=== PATIENT | female | born 1930 | race Caucasian/White ===

== ENCOUNTER 2018-04-19 13:44 | Observation (INO) ==
[2018-04-19 14:47] LABS: Bilirubin,Urine Negative (Negative); Blood,Urine Negative (Negative); Clarity,Urine Clear (Clear); Color,Urine Yellow (Yellow); Glucose,Urine (UA) 250 mg/dL (Normal); Ketones,Urine Negative (Negative); Leukocyte Esterase,Urine Small (Negative); Nitrite,Urine Negative (Negative); Protein,Urine Negative (Neg-Trace); Specific Gravity,Urine 1.014 (1.010-1.025); Urobilinogen,Urine Normal (Normal)
[2018-04-19 14:49] LABS: Bacteria,Urine Many per hpf (None-Few); Hyaline Casts,Urine None Seen per lpf (None-Few); Squamous Epithelial Cell,Urine Many per lpf (None-Few)
[2018-04-19 15:03] LABS: Basophils # 0.1 K/mcL (0.0-0.2); Basophils % 0.8 %; Eosinophils # 0.2 K/mcL (0.0-0.6); Eosinophils % 1.8 %; Hematocrit 43.3 % (35.3-44.9); Hemoglobin 13.9 g/dL (11.5-15.4); Immature Granulocytes % 0.8 % (0-4); Lymphocytes # 0.9 K/mcL (0.6-4.6); Lymphocytes % 11.3 %; Mean Corpuscular HGB Conc 32.1 g/dL (31.6-35.5); Mean Corpuscular Hemoglobin 31.1 pg (28.0-33.3); Mean Corpuscular Volume 96.9 fL (83.0-100.0); Mean Platelet Volume 9.4 fL (9.4-12.4); Monocytes # 0.7 K/mcL (0.0-1.3); Monocytes % 8.2 %; Neutrophils # 6.4 K/mcL (1.6-8.9); Platelet Count 168 K/mcL (140-400); Red Blood Count 4.47 M/mcL (3.82-4.97); Red Cell Distribution Width 14.2 % (11.5-14.5); Segmented Neutrophils % 77.1 %
[2018-04-19 15:18] LABS: Troponin I < 0.03 ng/mL (< 0.04)
[2018-04-19 15:22] LABS: Alanine Aminotransferase 15 Units/L (7-52); Albumin 4.2 g/dL (3.5-5.7); Albumin/Globulin Ratio 1.4 (1.1-2.2); Alkaline Phosphatase 62 Units/L (34-104); Aspartate Amino Transferase 16 Units/L (13-39); BUN/Creatinine Ratio 20 (6-26); Bilirubin,Total 0.5 mg/dL (0.3-1.0); Blood Urea Nitrogen 20 mg/dL (8-23); Calcium 10.1 mg/dL (8.6-10.3); Carbon Dioxide 26 mEq/L (23-29); Chloride 99 mEq/L (98-107); Glucose 198 mg/dL (70-105); Osmolality,Calculated 290 (280-300); Potassium 3.9 mEq/L (3.5-5.1); Sodium 136 mEq/L (136-145); Total Protein 7.2 g/dL (6.4-8.9); eGFR For African Americans > 60 (> 60); eGFR For Non-African Americans 51 (> 60)
--- NOTE | 2018-04-19 17:19 | Emergency Department Note ---
Disposition Clinical Impression: Hypoxia Disposition: Admitted As Inpatient Condition: Good Referrals: Rashawn Underwood MD [Primary Care Provider] - Forms: ED Satisfaction Letter Time of Disposition: 20:53 General Adult HPI - General Chief complaint: ED Shortness of Breath/Dyspnea Stated complaint: possible pneumonia Time Seen by Provider: 04/19/18 16:56 Source: patient Limitations: no limitations Nursing Notes Reviewed: Yes Vital Signs Reviewed: Yes - History of Present Illness HPI Narrative: Mrs. Flowers, 88-year-old female who lives at home alone, presents from home with her daughters bedside. She called her primary care provider whose nurse recommended she present to the emergency department. She has a 3 day history of congestion, clear rhinorrhea, cough. She is concerned about pneumonia as, 12 years ago, she has similar symptoms with progressed into pneumonia she is trying to catch it early. She has no history of COPD. She herself has never smoked however she has been around smoking. She is not using the oxygen at home. She immediately became difficulty. She does have mild shortness of breath only after an episode of coughing. No fever. No chest pain, palpitations, diaphoresis. She has rib pain with cough. ROS: Positive: As above Negative: Fever, chills, nausea, vomiting, chest pain, palpitations, diaphoresis , unusual back pain, weakness, numbness, tingling, fall, sputum production. Pain Scale: 5 - Related Data Home Medications Medication Instructions Recorded Confirmed Cholecalciferol (Vitamin D3) 1,000 unit PO DAILY 02/22/16 04/19/18 [Vitamin D3] Diltiazem HCl [Diltiazem 24Hr Cd] 180 mg PO DAILY 02/22/16 04/19/18 Enalapril Maleate [Vasotec] 5 mg PO DAILY 02/22/16 04/19/18 Ferrous Sulfate [Iron] 325 mg PO DAILY 02/22/16 04/19/18 Linagliptin [Tradjenta] 5 mg PO DAILY 02/22/16 04/19/18 Ezetimibe [Ezetimibe] 10 mg PO DAILY 04/19/18 04/19/18 Furosemide [Lasix] 40 mg PO DAILY 04/19/18 04/19/18 Potassium Chloride [K-Tab ER] 20 meq PO DAILY 04/19/18 04/19/18 Allergies Allergy/AdvReac Type Severity Reaction Status Date / Time Oxaprozin [From Daypro] Allergy Hives Verified 04/19/18 20:52 pioglitazone [From Actos] AdvReac See Verified 04/19/18 20:52 Comments All systems ED: reviewed and negative except as stated. Review of Systems: As Per HPI Past Medical History - Past Medical History Medical history: Reports: arthritis, diabetes, fibromyalgia, hyperlipidemia, hypertension, osteoporosis, other Psychiatric history: Reports: no psych history - Social History Smoking Status: Never smoker Smokeless Tobacco Status: No Alcohol use: Reports: none Drug use: Reports: none Physical Exam Vital Signs Reviewed-patient slightly tachycardic on intake vitals, heart rate in the mid 90's on bedside monitor. General: Patient is alert, oriented, and in no acute distress. She is oxygenating well on room air on bedside pulse oximetry. Head: atraumatic, normocephalic Eye: normal appearance, no scleral icterus, no conjunctival injection ENT: mucous membranes moist, normal external ear exam Neck: normal inspection, trachea midline, full ROM Chest: normal inspection, symmetric chest rise Respiratory: Thoracic kyphosis. Good respiratory effort however limited secondary to kyphosis. Bilateral breath sounds are clear without wheezing, crackles, or rhonchi. Cardiovascular: Regular rate and rhythm. No clicks, rubs, gallops, or murmors. Normal heart sounds. Abdomen: Bowel sounds present normoactive x-4 quadrants. Abdomen is soft, nondistended, and nontender. No guarding or rebound. No organomegaly noted. Musculoskeletal: Spontaneously moving all extremities. Skin: warm, dry, intact. Neuro: Alert and oriented x4. Sensation light touch intact. Psych: Patient's affect is appropriate for situation. - General Limitations: no limitations General appearance: alert Course Course Narrative: Chest x-ray is unremarkable per radiology read as well as my evaluation. Patient has clear lung sounds however her respiratory inspiration limited secondary to thoracic kyphosis. Serum chemistries unremarkable. Serum hematology is unremarkable. Urinalysis shows epithelial contamination. Patient has no urinary symptoms. Culture pending; will await antibiotic management until culture has resulted. Patient age related with her cane on room air. She became hypoxic to 85% and tachycardic to 135. Though she is not wheezing and has no history of COPD, will provide nebs as wheezing may not be present secondary to limited inspiration. We will also provide IV steroids and draw a d-dimer. D-dimer 960; above age adjusted threshold of 890. Discussed this with the patient and her three daughters bedside; they agree to CTA chest. CTA negative for PE or pneumonia. Patient ambulated again on room air and her pulse ox dropped to 82% and she again became tachycardic. I discussed the above with the patient and her daughters bedside. Throughout the patient's stay, we discussed Options including admission. Given that the patient has unexplained hypoxia and no oxygen at home, I recommended admission. Patient's family and patient eventually agreed. I discussed the patient with the admitting hospitalist who agrees to accept the patient for continued evaluation and management EKG dated 19 April 2018 at 15:04 interpreted as sinus tachycardia with rate of 109. ID [id number], QRS 100, QTC 362. Left axis. Nonspecific ST-T changes. Compared to previous EKG dated 05/07/16 showing no acute ischemic changes. Chest X-Ray 04/19/18 14:23 IMPRESSION: 1. No acute cardiopulmonary disease. 2. Large hiatal hernia. D/ / 04/19/2018 14:55:48 Ami Awan MD / [facility] Interpreting Provider: Ami Awan MD Chest CTA 04/19/18 18:47 IMPRESSION: 1. No evidence of pulmonary embolism. 2. Mild mediastinal adenopathy, large hiatal hernia with paraesophageal component, and diffuse wall thickening in the distal esophagus. 3. Central pulmonary vasculature is prominent with ground-glass perihilar changes, likely mild vascular congestion. No gross effusions are noted. D/ : / 04/19/2018 20:12:25 Breana Temple MD / [facility] Interpreting Provider: Breana Temple MD Vital Signs Temperature 99.4 F 04/19/18 14:15 Pulse Rate 109 04/19/18 14:15 Respiratory Rate 24 04/19/18 14:15 Blood Pressure 133/81 04/19/18 14:15 O2 Sat by Pulse Oximetry 94 04/19/18 14:15 Temperature 99.4 F 04/19/18 14:15 Pulse Rate 103 04/19/18 21:00 Respiratory Rate 18 04/19/18 18:31 Blood Pressure 141/84 04/19/18 21:00 O2 Sat by Pulse Oximetry 92 04/19/18 21:00 Oxygen Delivery Oxygen Delivery Room Air Medical Decision Making - Lab Data Result diagrams: 04/19/18 14:42 04/19/18 14:42 Lab Results 04/19/18 04/19/18 04/19/18 Range/Units 14:15 14:42 14:42 WBC 8.3 (4.3-11.1) K/mcL RBC 4.47 (3.82-4.97) M/mcL Hgb 13.9 (11.5-15.4) g/dL Hct 43.3 (35.3-44.9) % MCV 96.9 (83.0-100.0) fL MCH 31.1 (28.0-33.3) pg MCHC 32.1 (31.6-35.5) g/dL RDW 14.2 (11.5-14.5) % Plt Count 168 (140-400) K/mcL MPV 9.4 (9.4-12.4) fL Immature Gran % 0.8 (0-4) % Seg Neutrophils % 77.1 % Lymphocytes % 11.3 % Monocytes % 8.2 % Eosinophils % 1.8 % Basophils % 0.8 % Neutrophils # 6.4 (1.6-8.9) K/mcL Lymphocytes # 0.9 (0.6-4.6) K/mcL Monocytes # 0.7 (0.0-1.3) K/mcL Eosinophils # 0.2 (0.0-0.6) K/mcL Basophils # 0.1 (0.0-0.2) K/mcL D-Dimer (0-500) ng/mLFEU Sodium 136 (136-145) mEq/L Potassium 3.9 (3.5-5.1) mEq/L Chloride 99 (98-107) mEq/L Carbon Dioxide 26 (23-29) mEq/L BUN 20 (8-23) mg/dL Creatinine 1.02 (0.60-1.20) mg/dL Est GFR ( Amer) > 60 (> 60) Est GFR (Non-Af Amer) 51 L (> 60) BUN/Creatinine Ratio 20 (6-26) Glucose 198 H (70-105) mg/dL POC Glucose (70-99) mg/dL Calculated Osmolality 290 (280-300) Calcium 10.1 (8.6-10.3) mg/dL Total Bilirubin 0.5 (0.3-1.0) mg/dL AST 16 (13-39) Units/L ALT 15 (7-52) Units/L Alkaline Phosphatase 62 (34-104) Units/L Troponin I < 0.03 (< 0.04) ng/mL Serum Total Protein 7.2 (6.4-8.9) g/dL Albumin 4.2 (3.5-5.7) g/dL Globulin 3.0 (2.4-3.5) g/dL Albumin/Globulin Ratio 1.4 (1.1-2.2) Urine Color Yellow (Yellow) Urine Clarity Clear (Clear) Urine pH 6.0 (5.0-8.0) pH Units Ur Specific [place] 1.014 (1.010-1.025) Urine Protein Negative (Neg-Trace) mg/dL Urine Glucose (UA) 250 H (Normal) mg/dL Urine Ketones Negative (Negative) mg/dL Urine Blood Negative (Negative) Urine Nitrite Negative (Negative) Urine Bilirubin Negative (Negative) Urine Urobilinogen Normal (Normal) mg/dL Ur Leukocyte Esterase Small H (Negative) Urine Microscopic RBC 3-5 H (0-3) per hpf Urine Microscopic WBC 5-15 H (0-3) per hpf Ur Squamous Epith Cells Many H (None-Few) per lpf Urine Bacteria Many H (None-Few) per hpf Hyaline Casts None Seen (None-Few) per lpf Ur Culture Indicated? NO. A (NO) 04/19/18 04/19/18 Range/Units 14:42 17:37 WBC (4.3-11.1) K/mcL RBC (3.82-4.97) M/mcL Hgb (11.5-15.4) g/dL Hct (35.3-44.9) % MCV (83.0-100.0) fL MCH (28.0-33.3) pg MCHC (31.6-35.5) g/dL RDW (11.5-14.5) % Plt Count (140-400) K/mcL MPV (9.4-12.4) fL Immature Gran % (0-4) % Seg Neutrophils % % Lymphocytes % % Monocytes % % Eosinophils % % Basophils % % Neutrophils # (1.6-8.9) K/mcL Lymphocytes # (0.6-4.6) K/mcL Monocytes # (0.0-1.3) K/mcL Eosinophils # (0.0-0.6) K/mcL Basophils # (0.0-0.2) K/mcL D-Dimer 968 H (0-500) ng/mLFEU Sodium (136-145) mEq/L Potassium (3.5-5.1) mEq/L Chloride (98-107) mEq/L Carbon Dioxide (23-29) mEq/L BUN (8-23) mg/dL Creatinine (0.60-1.20) mg/dL Est GFR ( Amer) (> 60) Est GFR (Non-Af Amer) (> 60) BUN/Creatinine Ratio (6-26) Glucose (70-105) mg/dL POC Glucose 156 H (70-99) mg/dL Calculated Osmolality (280-300) Calcium (8.6-10.3) mg/dL Total Bilirubin (0.3-1.0) mg/dL AST (13-39) Units/L ALT (7-52) Units/L Alkaline Phosphatase (34-104) Units/L Troponin I (< 0.04) ng/mL Serum Total Protein (6.4-8.9) g/dL Albumin (3.5-5.7) g/dL Globulin (2.4-3.5) g/dL Albumin/Globulin Ratio (1.1-2.2) Urine Color (Yellow) Urine Clarity (Clear) Urine pH (5.0-8.0) pH Units Ur Specific [place] (1.010-1.025) Urine Protein (Neg-Trace) mg/dL Urine Glucose (UA) (Normal) mg/dL Urine Ketones (Negative) mg/dL Urine Blood (Negative) Urine Nitrite (Negative) Urine Bilirubin (Negative) Urine Urobilinogen (Normal) mg/dL Ur Leukocyte Esterase (Negative) Urine Microscopic RBC (0-3) per hpf Urine Microscopic WBC (0-3) per hpf Ur Squamous Epith Cells (None-Few) per lpf Urine Bacteria (None-Few) per hpf Hyaline Casts (None-Few) per lpf Ur Culture Indicated? (NO) Attestation Statement - Attestation Attestation: I, Jerome Barnhart, examined this patient and my medical decision-making was reviewed with the AUDIO VIDEO REPAIRER/PA/Advanced Practice Nurse/Resident Physician. I agree with the documented findings, disposition and treatment plan as described except to the extent set forth below. 88-year-old female presents emergency Department with concerns of cough and possible pneumonia. Patient states she has a cough with nonproductive cough and nasal congestion over the past 2-3 days. Patient reports similar symptoms with previous pneumonia. Primary care provider Center to the emergency department for further evaluation. She denies a significant change in her shortness of breath. Chest x-ray did not show obvious infiltrate. Laboratory evaluation was largely within normal limits. Urinalysis showed possible urinary tract infection however patient is not having symptoms of UTI. Patient ambulated and became tachycardic to 135 and hypoxic to 85%. She states no history of COPD and she does not have significant amount of wheezing however the exam is limited by her kyphosis. Patient does not wear oxygen at home. D- dimer elevated above 900. CTA pending at this time.
[2018-04-19] MEDS ORDERED: Ipratropium/Albuterol Neb 3 ML IH ONE (17:21)
[2018-04-19] MEDS ORDERED: predniSONE 20 MG TABLET PO ONE (17:23)
[2018-04-19] MEDS ORDERED: 0.9 % Sodium Chloride 500 ML IVC ONE (17:37)
[2018-04-19] MEDS ORDERED: Isovue-370 500 ML INFUS..BTL IV ONE (18:47)
[2018-04-19] MEDS ORDERED: Acetaminophen 325 MG TABLET PO PRN (21:53)
[2018-04-19] MEDS ORDERED: Naloxone 0.4 MG/ML INJ IVP PRN (21:53)
[2018-04-19] MEDS ORDERED: Dextrose Gel 15 GM/37.5 ML TUBE PO PRN ×2 (21:58)
[2018-04-19] MEDS ORDERED: D5% in Water 1,000 ML IVC PRN (21:58)
[2018-04-19] MEDS ORDERED: *HR* Dextrose 50 % in Water (Syg) 50 ML SYRINGE IVP PRN (21:58)
--- NOTE | 2018-04-19 22:13 | Internal Med History&Physical ---
Date of Encounter: 04/19/18 Time of Encounter: 22:00 Internal Medicine - H&P: HPI Chief complaint: cough Admitted From: Home Plans for Post Hospital Care: Home History of present illness: Ms. Flowers is a 88 year old female with a pmh of HTN, HLP, DM2 and diastolic CHF who presented from home to the ED for 3 days of coughing and nasal congestion. Patient states that she on Wednesday began having a productive cough with clear sputum, nasal congestion of which she thought was getting better and today states that she got worse. She denies having fevers, weakness , dizziness, changes in vision, shortness of breath, chest pain or hemoptysis. Patient states that she has had pneumonia in the past and wanted to make sure that it does not progress to this which is why she came in today. Upon arrival in the ED, patient's respiratory rate was 24 and an O2 of 94% but did drop down to 85% when she became tachycardic at 135. Patient was given duo nebs, prednisone 60 mg by mouth, in the 500 mL bolus of normal saline. Patient' s EKG showed sinus tachycardia. D-dimer was elevated at 968 but CTA was negative for PE. Patient was admitted to the floor for acute bronchitis with hypoxia. While in the room patient was satting in the low 90s but when talking decreased to 88%. Past Med Surg Social Fam HX - Past Medical History Source: patient, old records reviewed Medical history: arthritis, CHF, diabetes, fibromyalgia, hyperlipidemia, hypertension, osteoporosis, other Additional medical history: OA Psychiatric history: no psych history - Past Surgical History Additional surgical history: uterus removed, breast biopsy non-cancerous - Social History Smoking Status: Never smoker Smokeless Tobacco Status: No Alcohol use: none Drug use: none - Family History Father Living Status: Hx Family Cardiac Disorders: Yes Mother Living Status: Hx Family Neurologic Disorders: Yes (cva) Internal Medicine - H&P: Meds Cholecalciferol (Vitamin D3) [Vitamin D3] 1,000 unit PO DAILY 02/22/16 [History] Diltiazem HCl [Diltiazem 24Hr Cd] 180 mg PO DAILY 02/22/16 [History] Enalapril Maleate [Vasotec] 5 mg PO DAILY 02/22/16 [History] Ferrous Sulfate [Iron] 325 mg PO DAILY 02/22/16 [History] Linagliptin [Tradjenta] 5 mg PO DAILY 02/22/16 [History] Ezetimibe [Ezetimibe] 10 mg PO DAILY 04/19/18 [History] Furosemide [Lasix] 40 mg PO DAILY 04/19/18 [History] Potassium Chloride [K-Tab ER] 20 meq PO DAILY 04/19/18 [History] 3 Allergy/AdvReac Type Severity Reaction Status Date / Time Oxaprozin [From Daypro] Allergy Hives Verified 04/19/18 20:52 pioglitazone [From Actos] AdvReac See Verified 04/19/18 20:52 Comments All Systems PM: A 10-system review of systems was performed and is negative for pertinent findings except as documented above in the HPI. Review of systems: See HPI - Constitutional Vitals: Temp Pulse Resp BP Pulse Ox 99.4 F 103 18 141/84 92 04/19/18 14:15 04/19/18 21:00 04/19/18 18:31 04/19/18 21:00 04/19/18 21:00 Exam: Constitutional: Alert, in no acute distress Head: Normocephalic, atraumatic Heart: Normal, regular rate and rhythm, no murmurs Lungs: Clear to auscultation with normal breathing, wheezing with coughing Abdomen: Soft, nondistended, nontender, bowel sounds present and normal, no guarding or rigidity. Extremities: No edema, No clubbing, radial pulse +2/4, capillary refill <2sec. Skin: Skin warm and dry, no lesions, no rashes, no jaundice Neurologic: Cranial nerves II through XII grossly intact, strength 5/5 in all extremities Psych: Cooperative with exam, good eye contact, cognitive function intact, speech clear, thought process logical, and goal directed Internal Med - H&P Results - Labs CBC & Chem 7: 04/19/18 14:42 04/19/18 14:42 Labs: Short CBC 04/19/18 Range/Units 14:42 WBC 8.3 (4.3-11.1) K/mcL Hgb 13.9 (11.5-15.4) g/dL Hct 43.3 (35.3-44.9) % Plt Count 168 (140-400) K/mcL Neutrophils # 6.4 (1.6-8.9) K/mcL BMP 04/19/18 14:42 Sodium 136 Potassium 3.9 Chloride 99 Carbon Dioxide 26 BUN 20 Creatinine 1.02 Glucose 198 H Calcium 10.1 Cardiac Enzymes 04/19/18 Range/Units 14:42 Troponin I < 0.03 (< 0.04) ng/mL Liver Function 04/19/18 Range/Units 14:42 Total Bilirubin 0.5 (0.3-1.0) mg/dL AST 16 (13-39) Units/L ALT 15 (7-52) Units/L Alkaline Phosphatase 62 (34-104) Units/L Albumin 4.2 (3.5-5.7) g/dL Urine 04/19/18 Range/Units 14:15 Urine Color Yellow (Yellow) Urine Clarity Clear (Clear) Urine pH 6.0 (5.0-8.0) pH Units Ur Specific [place] 1.014 (1.010-1.025) Urine Protein Negative (Neg-Trace) mg/dL Urine Glucose (UA) 250 H (Normal) mg/dL - Impressions ITS Impressions Chest X-Ray 04/19/18 14:23 IMPRESSION: 1. No acute cardiopulmonary disease. 2. Large hiatal hernia. D/ / 04/19/2018 14:55:48 Ami Awan MD / [email or web address] Interpreting Provider: Ami Awan MD Chest CTA 04/19/18 18:47 IMPRESSION: 1. No evidence of pulmonary embolism. 2. Mild mediastinal adenopathy, large hiatal hernia with paraesophageal component, and diffuse wall thickening in the distal esophagus. 3. Central pulmonary vasculature is prominent with ground-glass perihilar changes, likely mild vascular congestion. No gross effusions are noted. D/ / 04/19/2018 20:12:25 Breana Temple MD / [email or web address] Interpreting Provider: Breana Temple MD - Assessment and plan (1) Acute bronchitis Current Visit: Yes Status: Acute Assessment and plan: Three days of URI symptoms that were seemingly like they are improving and then worsened today. In the ED, patient was hypoxic down to 85% and tachycardic to 135. Due to worsening symptoms and hypoxia will begin antibiotics. BNP ordered to assure no component of congestive heart failure. Plan: - begin Azithromycin (day 1/5) - respiratory panel - continue ox support if needed - DuoNebs Q4H prn, Q6H renetta - Prednisone 50mg daily - Mucinex - BNP ordered Qualifiers: Bronchitis organism: unspecified organism Qualified Code(s): J20.9 - Acute bronchitis, unspecified (2) Diabetes Current Visit: No Status: Chronic Assessment and plan: Plan: - low sliding scale - Accu checks TIDAC and HS Qualifiers: Diabetes mellitus type: type 2 Diabetes mellitus complication status: without complication Qualified Code(s): E11.9 - Type 2 diabetes mellitus without complications (3) Hypertension, essential Current Visit: Yes Status: Acute Assessment and plan: Has been normotensive during this admission. Continue home meds. (4) DVT prophylaxis Current Visit: Yes Status: Acute Assessment and plan: Heparin SQ - Time Spent With Patient Total time spent is greater than 50% in coordination of care (as documented) at patient's floor/unit and/or counseling patient:
--- NOTE | 2018-04-19 22:14 | Event Note ---
Date of Encounter: 04/19/18 Time of Encounter: 22:13 Patient was seen and examined. I agree with the H&P as written by the Resident Physician. Briefly patient with history of hypertension, hyperlipidemia, diabetes, and anasarca failure who presents with 3 days of URI symptoms with a productive cough. Chest x-ray was clear. Hemoglobin stable in the ED. When this to the patient up they noted that her oxygenation would drop to 85% with ambulation. The ED did not feel couple sending the patient home. D dimers were elevated and a CTA was done which ruled out a PE. No infiltrates showed imaging. Patient has no signs of edema and volume overload. Other laboratory work was unremarkable. The patient was given prednisone in the ED. With admitting the patient for acute bronchitis. GEN: NAD CVS: RRR. S1, S2, No m/r/g RESP: CTAB ABD: Soft, NT, ND, +BS EXT: No edema. 2+ DP. No rashes NEURO: Nonfocal Admit to hospitalist Put the patient on oral prednisone and Zithromax Respiratory panel Nebs and Mucinex May need O2 study prior to discharge PFTs in the outpatient setting Insulin sliding scale Resume home meds DVT prophylaxis
--- NOTE | 2018-04-19 22:33 | Emergency Department Note ---
Disposition Clinical Impression: Hypoxia Disposition: Admitted As Inpatient Condition: Good General Adult HPI - General Chief complaint: ED Shortness of Breath/Dyspnea Stated complaint: possible pneumonia Time Seen by Provider: 04/19/18 16:56 Source: patient Limitations: no limitations Nursing Notes Reviewed: Yes Vital Signs Reviewed: Yes - History of Present Illness Pain Scale: 0 - Related Data Home Medications Medication Instructions Recorded Confirmed Cholecalciferol (Vitamin D3) 1,000 unit PO DAILY 02/22/16 04/19/18 [Vitamin D3] Diltiazem HCl [Diltiazem 24Hr Cd] 180 mg PO DAILY 02/22/16 04/19/18 Enalapril Maleate [Vasotec] 5 mg PO DAILY 02/22/16 04/19/18 Ferrous Sulfate [Iron] 325 mg PO DAILY 02/22/16 04/19/18 Linagliptin [Tradjenta] 5 mg PO DAILY 02/22/16 04/19/18 Ezetimibe [Ezetimibe] 10 mg PO DAILY 04/19/18 04/19/18 Furosemide [Lasix] 40 mg PO DAILY 04/19/18 04/19/18 Potassium Chloride [K-Tab ER] 20 meq PO DAILY 04/19/18 04/19/18 Allergies Allergy/AdvReac Type Severity Reaction Status Date / Time Oxaprozin [From Daypro] Allergy Hives Verified 04/19/18 20:52 pioglitazone [From Actos] AdvReac See Verified 04/19/18 20:52 Comments Past Medical History - Past Medical History Medical history: Reports: arthritis, CHF, diabetes, fibromyalgia, hyperlipidemia , hypertension, osteoporosis, other Psychiatric history: Reports: no psych history - Social History Smoking Status: Never smoker Smokeless Tobacco Status: No Alcohol use: Reports: none Drug use: Reports: none Physical Exam - General Limitations: no limitations General appearance: alert Course Vital Signs Temperature 99.4 F 04/19/18 14:15 Pulse Rate 109 04/19/18 14:15 Respiratory Rate 24 04/19/18 14:15 Blood Pressure 133/81 04/19/18 14:15 O2 Sat by Pulse Oximetry 94 04/19/18 14:15 Temperature 99.4 F 04/19/18 14:15 Pulse Rate 99 04/19/18 22:06 Respiratory Rate 18 04/19/18 18:31 Blood Pressure 117/70 04/19/18 22:06 O2 Sat by Pulse Oximetry 89 04/19/18 22:06 Oxygen Delivery Oxygen Delivery Room Air Medical Decision Making - Lab Data Result diagrams: 04/19/18 14:42 04/19/18 14:42 Lab Results 04/19/18 04/19/18 04/19/18 Range/Units 14:15 14:42 14:42 WBC 8.3 (4.3-11.1) K/mcL RBC 4.47 (3.82-4.97) M/mcL Hgb 13.9 (11.5-15.4) g/dL Hct 43.3 (35.3-44.9) % MCV 96.9 (83.0-100.0) fL MCH 31.1 (28.0-33.3) pg MCHC 32.1 (31.6-35.5) g/dL RDW 14.2 (11.5-14.5) % Plt Count 168 (140-400) K/mcL MPV 9.4 (9.4-12.4) fL Immature Gran % 0.8 (0-4) % Seg Neutrophils % 77.1 % Lymphocytes % 11.3 % Monocytes % 8.2 % Eosinophils % 1.8 % Basophils % 0.8 % Neutrophils # 6.4 (1.6-8.9) K/mcL Lymphocytes # 0.9 (0.6-4.6) K/mcL Monocytes # 0.7 (0.0-1.3) K/mcL Eosinophils # 0.2 (0.0-0.6) K/mcL Basophils # 0.1 (0.0-0.2) K/mcL D-Dimer (0-500) ng/mLFEU Sodium 136 (136-145) mEq/L Potassium 3.9 (3.5-5.1) mEq/L Chloride 99 (98-107) mEq/L Carbon Dioxide 26 (23-29) mEq/L BUN 20 (8-23) mg/dL Creatinine 1.02 (0.60-1.20) mg/dL Est GFR ( Amer) > 60 (> 60) Est GFR (Non-Af Amer) 51 L (> 60) BUN/Creatinine Ratio 20 (6-26) Glucose 198 H (70-105) mg/dL POC Glucose (70-99) mg/dL Calculated Osmolality 290 (280-300) Calcium 10.1 (8.6-10.3) mg/dL Total Bilirubin 0.5 (0.3-1.0) mg/dL AST 16 (13-39) Units/L ALT 15 (7-52) Units/L Alkaline Phosphatase 62 (34-104) Units/L Troponin I < 0.03 (< 0.04) ng/mL Serum Total Protein 7.2 (6.4-8.9) g/dL Albumin 4.2 (3.5-5.7) g/dL Globulin 3.0 (2.4-3.5) g/dL Albumin/Globulin Ratio 1.4 (1.1-2.2) Urine Color Yellow (Yellow) Urine Clarity Clear (Clear) Urine pH 6.0 (5.0-8.0) pH Units Ur Specific Dorsey 1.014 (1.010-1.025) Urine Protein Negative (Neg-Trace) mg/dL Urine Glucose (UA) 250 H (Normal) mg/dL Urine Ketones Negative (Negative) mg/dL Urine Blood Negative (Negative) Urine Nitrite Negative (Negative) Urine Bilirubin Negative (Negative) Urine Urobilinogen Normal (Normal) mg/dL Ur Leukocyte Esterase Small H (Negative) Urine Microscopic RBC 3-5 H (0-3) per hpf Urine Microscopic WBC 5-15 H (0-3) per hpf Ur Squamous Epith Cells Many H (None-Few) per lpf Urine Bacteria Many H (None-Few) per hpf Hyaline Casts None Seen (None-Few) per lpf Ur Culture Indicated? NO. A (NO) 04/19/18 04/19/18 Range/Units 14:42 17:37 WBC (4.3-11.1) K/mcL RBC (3.82-4.97) M/mcL Hgb (11.5-15.4) g/dL Hct (35.3-44.9) % MCV (83.0-100.0) fL MCH (28.0-33.3) pg MCHC (31.6-35.5) g/dL RDW (11.5-14.5) % Plt Count (140-400) K/mcL MPV (9.4-12.4) fL Immature Gran % (0-4) % Seg Neutrophils % % Lymphocytes % % Monocytes % % Eosinophils % % Basophils % % Neutrophils # (1.6-8.9) K/mcL Lymphocytes # (0.6-4.6) K/mcL Monocytes # (0.0-1.3) K/mcL Eosinophils # (0.0-0.6) K/mcL Basophils # (0.0-0.2) K/mcL D-Dimer 968 H (0-500) ng/mLFEU Sodium (136-145) mEq/L Potassium (3.5-5.1) mEq/L Chloride (98-107) mEq/L Carbon Dioxide (23-29) mEq/L BUN (8-23) mg/dL Creatinine (0.60-1.20) mg/dL Est GFR ( Amer) (> 60) Est GFR (Non-Af Amer) (> 60) BUN/Creatinine Ratio (6-26) Glucose (70-105) mg/dL POC Glucose 156 H (70-99) mg/dL Calculated Osmolality (280-300) Calcium (8.6-10.3) mg/dL Total Bilirubin (0.3-1.0) mg/dL AST (13-39) Units/L ALT (7-52) Units/L Alkaline Phosphatase (34-104) Units/L Troponin I (< 0.04) ng/mL Serum Total Protein (6.4-8.9) g/dL Albumin (3.5-5.7) g/dL Globulin (2.4-3.5) g/dL Albumin/Globulin Ratio (1.1-2.2) Urine Color (Yellow) Urine Clarity (Clear) Urine pH (5.0-8.0) pH Units Ur Specific Dorsey (1.010-1.025) Urine Protein (Neg-Trace) mg/dL Urine Glucose (UA) (Normal) mg/dL Urine Ketones (Negative) mg/dL Urine Blood (Negative) Urine Nitrite (Negative) Urine Bilirubin (Negative) Urine Urobilinogen (Normal) mg/dL Ur Leukocyte Esterase (Negative) Urine Microscopic RBC (0-3) per hpf Urine Microscopic WBC (0-3) per hpf Ur Squamous Epith Cells (None-Few) per lpf Urine Bacteria (None-Few) per hpf Hyaline Casts (None-Few) per lpf Ur Culture Indicated? (NO) Attestation Statement - Attestation Attestation: I, Jerome Barnhart, examined this patient and my medical decision-making was reviewed with the [employer]/PA/Advanced Practice Nurse/Resident Physician. I agree with the documented findings, disposition and treatment plan as described except to the extent set forth below. 88-year-old female presents emergency Department with concerns of difficulty in breathing and cough. Patient states she has a nonproductive cough, the cough causes pain in the bilateral lower chest. She denies a fever, nausea, vomiting , diarrhea, abdominal pain, rash, recent changes in her medications. Patient has a history of pneumonia with similar symptoms in the past. Her PCP sent her to the emergency department for further evaluation. Patient states she feels well however when she ambulated her heart rate latoya to 135 and she desaturated to 82% with ambulation. Patient was giving a breathing treatment afterwards and steroids for possible bronchitis versus COPD. D-dimer was elevated, CTA of the chest was negative for acute PE or other pneumonia. Patient will be admitted to the hospitalist for further care and evaluation of her hypoxia.
[2018-04-19] MEDS ORDERED: Ipratropium/Albuterol Neb 3 ML IH PRN (22:37)
[2018-04-19] MEDS ORDERED: Azithromycin 250 MG TABLET PO ONE (22:45)
[2018-04-19] MEDS ORDERED: Insulin LISPRO 300 UNITS/3 ML VIAL SQ SCH (23:15)
[2018-04-20] MEDS: (Ezetimibe [Ezetimibe] 10 MG) PO SCH ×2 (00:11→08:54)
[2018-04-20] MEDS: Ipratropium/Albuterol Neb 3 ML IH SCH ×2 (03:50→09:53)
[2018-04-20] MEDS ORDERED: *HR* Heparin 5,000 UNIT/ML VIAL SQ SCH (06:00)
[2018-04-20 06:37] LABS: Basophils % 0.2 %; Hematocrit 37.8 % (35.3-44.9); Hemoglobin 12.4 g/dL (11.5-15.4); Immature Granulocytes % 0.8 % (0-4); Lymphocytes # 0.7 K/mcL (0.6-4.6); Lymphocytes % 9.8 %; Mean Corpuscular HGB Conc 32.8 g/dL (31.6-35.5); Mean Corpuscular Volume 94.5 fL (83.0-100.0); Mean Platelet Volume 9.6 fL (9.4-12.4); Monocytes # 0.5 K/mcL (0.0-1.3); Monocytes % 6.9 %; Neutrophils # 5.5 K/mcL (1.6-8.9); Platelet Count 151 K/mcL (140-400); Red Cell Distribution Width 14.1 % (11.5-14.5); Segmented Neutrophils % 82.3 %
[2018-04-20] MEDS: Insulin LISPRO 300 UNITS/3 ML VIAL SQ SCH ×2 (08:56→12:24)
[2018-04-20] MEDS: predniSONE 20 MG TABLET PO SCH ×2 (08:57→12:39)
[2018-04-20] MEDS ORDERED: Cholecalciferol (D-3) 1,000 UNIT TABLET PO SCH (09:00)
[2018-04-20] MEDS ORDERED: (Ezetimibe [Ezetimibe] 10 MG) PO SCH (09:00)
[2018-04-20] MEDS ORDERED: Diltiazem CD (24hr) 180 MG CAPSULE PO SCH (09:00)
[2018-04-20] MEDS ORDERED: (Linagliptin [Tradjenta] 5 MG) PO SCH (09:00)
[2018-04-20] MEDS ORDERED: Furosemide 40 MG TABLET PO SCH (09:00)
[2018-04-20 11:59] VITALS: BP 122/65
[2018-04-20 12:10] LABS: Adenovirus Not Detected (Not Detect); Bordetella Pertussis Not Detected (Not Detect); Chlamydophila pneumoniae Not Detected (Not Detect); Coronavirus 229E Not Detected (Not Detect); Coronavirus HKU1 Not Detected (Not Detect); Coronavirus NL63 Not Detected (Not Detect); Coronavirus OC43 ***DETECTED*** (Not Detect); Human Metapneumovirus Not Detected (Not Detect); Human Rhinovirus/Enterovirus Not Detected (Not Detect); Influenza A Subtype 2009 H1 Not Detected (Not Detect); Influenza A Untypeable Not Detected (Not Detect); Influenza B Not Detected (Not Detect); Mycoplasma pneumoniae Not Detected (Not Detect); Parainfluenza Virus 1 Not Detected (Not Detect); Parainfluenza Virus 2 Not Detected (Not Detect); Parainfluenza Virus 3 Not Detected (Not Detect); Parainfluenza Virus 4 Not Detected (Not Detect); Respiratory Syncytial Virus Not Detected (Not Detect)
--- NOTE | 2018-04-20 13:54 | Discharge Summary ---
Date of Encounter: 04/20/18 Time of Encounter: 13:51 - Discharge Diagnosis (1) Acute bronchitis Priority: Primary Status: Acute Assessment and Plan: presented with 3 days of URI symptoms; was advised to go to ER per PCP. CXR non- acute. CAT negative for pneumonia or pulmonary embolism. BNP normal. Sx's improved with azithromycin and steroids. Continue azithromycin and steroid burst at discharge. Recommend follow-up with PCP within one week. Qualifiers: Bronchitis organism: unspecified organism Qualified Code(s): J20.9 - Acute bronchitis, unspecified (2) Acute respiratory failure with hypoxia Priority: Primary Status: Acute Assessment and Plan: Was found to be hypoxic in the ED on arrival; oxygen saturations at 86% room air. Unable to wean oxygen with ambulation/activity. Patient will be discharged home home oxygen. (3) Diabetes Priority: Primary Status: Chronic Assessment and Plan: per hx. Cont home diabetes medication regimen. Qualifiers: Diabetes mellitus type: type 2 Diabetes mellitus complication status: without complication Qualified Code(s): E11.9 - Type 2 diabetes mellitus without complications (4) Hypertension, essential Priority: Primary Status: Acute Assessment and Plan: per hx. Cont home BP medications Hospital course: Please see assessment and plan for hospital course. Discharge discussed with: patient (Seen and examined at bedside. Patient is new to me, information obtained from chart review and patient report. Says she feels better would like to go home today. No chest pain or shortness of breath. Has a nonproductive cough.) - Time Spent with Patient Total time spent providing and/or coordinating discharge services: - Discharge Medications Prescriptions: Azithromycin [Zithromax] 250 mg PO DAILY #3 tablet predniSONE [PredniSONE] 40 mg PO DAILY 3 Days #6 tablet Home Medications: Cholecalciferol (Vitamin D3) [Vitamin D3] 1,000 unit PO DAILY 02/22/16 [History] Diltiazem HCl [Diltiazem 24Hr Cd] 180 mg PO DAILY 02/22/16 [History] Enalapril Maleate [Vasotec] 5 mg PO DAILY 02/22/16 [History] Ferrous Sulfate [Iron] 325 mg PO DAILY 02/22/16 [History] Linagliptin [Tradjenta] 5 mg PO DAILY 02/22/16 [History] Ezetimibe 10 mg PO DAILY 04/19/18 [History] Furosemide [Lasix] 40 mg PO DAILY 04/19/18 [History] Potassium Chloride [K-Tab ER] 20 meq PO DAILY 04/19/18 [History] Azithromycin [Zithromax] 250 mg PO DAILY #3 tablet 04/20/18 [Rx] predniSONE [PredniSONE] 40 mg PO DAILY 3 Days #6 tablet 04/20/18 [Rx] Allergies/Adverse Reactions: 3 Allergy/AdvReac Type Severity Reaction Status Date / Time Oxaprozin [From Daypro] Allergy Hives Verified 04/19/18 20:52 pioglitazone [From Actos] AdvReac See Verified 04/19/18 20:52 Comments Date of admission: 04/19/18 22:05 Primary care physician: Rashawn Underwood Discharging clinician: Vicki Benedict Anticipated date of discharge: 04/20/18 - Constitutional Vitals: Temp Pulse Resp BP Pulse Ox 97.7 F 87 17 122/65 94 04/20/18 11:55 04/20/18 11:55 04/20/18 11:55 04/20/18 11:55 04/20/18 11:55 General appearance: Present: A&O X 3, pleasant, no acute distress - Head Head exam: Present: atraumatic, normocephalic - Eye Eye exam: Present: PERRL, conjuntiva pink, sclera anicteric Pupils: Present: PERRL - Neck Neck exam general surgery: Present: supple, trachea midline. Absent: lymphadenopathy - Respiratory Respiratory exam: Present: CTAB. Absent: accessory muscle use, rales, rhonchi, wheezes - Cardiovascular Cardiovascular exam: Present: RRR, +S1, +S2. Absent: diastolic murmur, gallop, rubs, systolic murmur - GI/Abdominal GI/Abdominal exam: Present: normal bowel sounds, soft, no peritoneal signs. Absent: distended, tenderness - Extremities Exam Extremities exam: Present: warm, radial pulses palpable and symmetrical. Absent : calf tenderness, cyanotic, pedal edema - Neurological Exam Neurological exam: Present: CN II-XII intact, oriented X3, no focal deficits. Absent: pronater drift, facial droop, speech deficit - Skin Skin exam: Present: dry, intact - Patient Status Disposition: Home, Self-Care Condition: Good Functional capacity at discharge: independent ambulation Overall status at discharge: patient is back to baseline - Discharge Instructions Instructions: Using Oxygen at Home (DC), Hypoxia (GEN), Prednisone (By mouth), Azithromycin (By mouth), Acute Bronchitis (DC) Follow Up With: Rashawn Underwood MD [Primary Care Provider] - (please call for follow-up appointment within 1 week) - Diet and Activity Activity: increase activity as tolerated Diet: diabetic diet, low fat, low cholesterol
--- NOTE | 2018-04-20 19:24 | Electrocardiograph Report ---
[place] [id number] Test Date: 2018-04-19 Pat Name: Misty Flowers Department: [id number] Room: 3B43 Gender: F [employer]: NURIA : [id number] Requested By: Elly Barnhart Order Number: [id number] Reading MD: Neel Simeon Measurements Intervals [place] Rate: 109 P: 21 ID: [id number] QRS: -41 QRSD: 100 T: 13 QT: 298 QTc: 362 Interpretive Statements SINUS TACHYCARDIA MARKED LEFT AXIS DEVIATION MINIMAL VOLTAGE CRITERIA FOR LVH, CONSIDER NORMAL VARIANT Poor R wave progression Electronically Signed On 04-20-2018 19:23:18 EDT by Neel Simeon
[2018-04-21] MEDS ORDERED: Azithromycin 250 MG TABLET PO SCH (09:00)
== END 2018-04-20 15:55 | disposition home or self-care (01) ==
LOC: 3BNU 13:44 → EMEROO 13:44 → 3BNU 22:18
PROVIDERS: ADMIT Internal Medicine; ATTEND Internal Medicine